=== PATIENT | male | born 1965 | race African-American/Black ===

== ENCOUNTER 2025-02-10 18:56 | Emergency (ER) | payer SELFPAY ==
[2025-02-10] MEDS ORDERED: TYLENOL325 MG PO (20:25)
[2025-02-10] MEDS ORDERED: NEURONTIN300 MG PO (20:25)
== END 2025-02-11 06:27 | disposition short-term general hospital (02) ==
LOC: FSED 19:10
DX: R20.0 Anesthesia of skin (principal)

== ENCOUNTER 2025-02-10 19:35 | Emergency (ER) | payer OTHER ==
[~2025-02-10] VITALS: Ht 177.8 cm; Wt 80.3 kg
[2025-02-10 19:40] VITALS: PULSE 90; RESP 20; TEMP 98.5
[2025-02-10] MEDS ORDERED: TYLENOL325 MG PO (20:25)
[2025-02-10] MEDS ORDERED: NEURONTIN300 MG PO (20:25)
[2025-02-10 20:29] VITALS: BP 163/82; PULSE 90; RESP 20; TEMP 98.5; O2SAT 98
== END 2025-02-10 20:32 | disposition home or self-care (01) ==
LOC: FSED 19:41
DX: G62.9 Polyneuropathy, unspecified (principal); R73.9 Hyperglycemia, unspecified; I10 Essential (primary) hypertension; M19.072 Primary osteoarthritis, left ankle and foot; F17.210 Nicotine dependence, cigarettes, uncomplicated
CPT/HCPCS: 36415; 82948; 99283